=== PATIENT | male | born 1945 | race Caucasian/White ===

== ENCOUNTER → 2017-01-20 | Outpatient (CLI) | payer MEDICARE, OTHER ==
--- NOTE | 2017-01-20 13:41 | RAD ---
Indication neck pain with numbness in the left arm. Duration of symptoms one month. AP oblique and lateral views of the cervical spine were obtained as well as an odontoid view. C1-C7 are identified. There is slight disc space narrowing and osteophyte formation at C4-5 with similar findings at C6-7. An acute bony finding is not seen. The prevertebral soft tissues appear normal. There is minimal left bony foraminal encroachment at C4-5 and somewhat greater foraminal encroachment, on the right, at C3-4 and C4-5. IMPRESSION: Spondylitic changes. No acute finding seen
== END | disposition home or self-care (01) ==
LOC: DXRADRC 13:00
PROVIDERS: ATTEND Family Medicine
DX: M46.82 Other specified inflammatory spondylopathies, cervical region (principal); M54.2 Cervicalgia; M79.602 Pain in left arm
CPT/HCPCS: 72050